=== PATIENT | male | born 1955 | race African-American/Black ===

== ENCOUNTER 2016-07-08 17:14 | Observation (INO) ==
[2016-07-08 17:41] LABS: MANUAL DIFF NEEDED? NO
[2016-07-08 17:53] LABS: BASO% 0.7 % (0.0-0.8); EOS# 0.26 X1000 (0.0-0.7); EOS% 6.3 % (0.0-10.0); HEMATOCRIT 40.6 % (42.0-52.0); HEMOGLOBIN 13.2 g/dL (14.0-18.0); LYMPH# 2.04 X1000 (1.2-3.4); LYMPH% 49.5 % (20.5-51.1); MCH 27.8 PG (27-31); MCHC 32.5 g/dL (33-37); MCV 85.5 FL (81-99); MONO# 0.42 X1000 (0.11-0.59); MONO% 10.2 % (1.7-9.3); MPV 10.1 FL (7.4-10.4); NEUT% 33.3 % (42.2-75.2); PLT 255 X1000 (130-400); RBC 4.75 XMIL (4.7-6.1)
[2016-07-08 18:12] LABS: ALBUMIN 4.4 g/dL (3.5-5.0); CALCIUM 8.9 mg/dL (8.8-10.2); POTASSIUM 4.5 mmol/L (3.5-5.1); TOTAL BILIRUBIN 0.23 mg/dL (0.20-1.00); TOTAL PROTEIN 7.8 g/dL (6.3-8.3)
[2016-07-08] MEDS ORDERED: TORADOL IV ONE (18:51)
[2016-07-08] MEDS ORDERED: NS 1,000 ML IV ONE ×2 (18:51→20:03)
[2016-07-08 19:04] LABS: URINE CULTURE NEEDED? NO; URINE MICRO REVIEW NEEDED? NO; URINE SOURCE CLEAN CATCH
[2016-07-08 19:11] LABS: BILIRUBIN URINE NEGATIVE (NEGATIVE); BLOOD URINE TRACE (NEGATIVE); COLOR YELLOW; GLUCOSE URINE NEGATIVE (NEGATIVE); LEUKOCYTES URINE NEGATIVE (NEGATIVE); NITRITE URINE NEGATIVE (NEGATIVE); PROTEIN URINE NEGATIVE (NEGATIVE); SP GRAVITY URINE 1.019; TURBIDITY URINE CLEAR (CLEAR); UR EPITHELIAL CELLS <10 /HPF (<10); URINE BACTERIA NEGATIVE /HPF; URINE RBC <10 /HPF (<10); URINE WBC <10 /HPF (<10); UROBILINOGEN URINE NORMAL (NORMAL)
[2016-07-08] MEDS ORDERED: SODIUM CHLORIDE 0.9% INJ ONE (20:07)
[2016-07-08] MEDS ORDERED: PHENERGAN IV ONE (20:07)
[2016-07-08] MEDS ORDERED: DILAUDID IV ONE (20:08)
--- NOTE | 2016-07-08 20:13 | PROVIDER DOCUMENTATION ---
This chart was entered by Sherine Sibley Scribe, acting as scribe for Byron Donato MD. HPI-Abdominal Pain/GI Problem - General Chief Complaint: Abdominal Pain Stated Complaint: sent by MD for eval Time Seen by Provider: 07/08/16 18:42 Source: patient Allergies/Adverse Reactions: Patient Allergies Allergy/AdvReac Type Severity Reaction Status Date / Time codeine Allergy Severe swells Verified 07/08/16 18:47 lips, makes lips itch Sulfa (Sulfonamide Allergy Severe SWELLING Verified 07/08/16 18:47 Antibiotics) Home Medications: Home Medication List Medication Instructions Recorded Confirmed Last Taken Type Paroxetine HCl 37.5 mg PO DAILY 07/02/12 07/08/16 04/07/16 History Dexlansoprazole [Dexilant] 60 mg PO DAILY 09/21/14 07/08/16 07/08/16 07:00 History Tamsulosin [Flomax] 0.4 mg PO DAILY 09/21/14 07/08/16 07/08/16 07:00 History Dronabinol [Marinol] 2.5 mg PO DAILY 04/07/16 07/08/16 07/08/16 07:00 History Fenofibrate 160 mg PO DAILY 04/07/16 07/08/16 07/08/16 07:00 History Sucralfate [Carafate] 1 gm PO 4XDAY #120 tablet 04/08/16 07/08/16 07/08/16 12: 00 Rx Amlodipine [Norvasc] 2.5 mg PO BID #60 tablet 05/10/16 07/08/16 07/08/16 07:00 Rx Clonazepam [Klonopin] 1 mg PO BID #60 tablet 05/10/16 07/08/16 07/08/16 07:00 Rx Hydrocodone/Acetaminophen [[place] 1 each PO BID #30 tablet 05/10/16 07/08/1602/13 07:00 Rx 10-325 Tablet] Mesalamine Supp [Canasa Supp] 1,000 mg HI HS #30 supp 05/10/16 07/08/16 Unknown Rx Paroxetine [Paxil] 30 mg PO QAM #0 tablet 05/10/16 07/08/16 07/08/16 07:00 Rx - History of Present Illness-ABD Nature of Presenting Problems: 61 Y/O M presents to ED with ABD pain. Pt states that he was sent here from Dr. Dawkins's office due to his persistent D/N with blood and mucus noted for the past one week. Pt c/o of chills, diaphoresis, and generalized abd pain. Pt has a hx of small intestine removal, removal of gallbladder and hemorrhoid removal. Hx of Crohns disease. Abdominal Pain Onset Location: reports: generalized abdomen Pain Radiation: reports: no radiation Quality of Pain: reports: aching Severity in ED: reports: moderate, severe Onset/Duration: reports: 1 week ago Timing: reports: still present Activities at Onset: reports: none Exposure to sick contacts?: No Associated Symptoms: reports: diarrhea, fever/chills, nausea. denies: constipation, heartburn, vomiting Rectal Bleeding: reports: bloody diarrhea Review of Systems - Adult - REVIEW OF SYSTEMS - ADULT Constitutional: reports: chills. denies: fever Eyes: reports: no symptoms reported Ears, Nose, Mouth & Throat: reports: no symptoms reported Cardiovascular: reports: no symptoms reported Respiratory: denies: cough, shortness of breath Gastrointestinal: reports: abdominal pain, diarrhea, nausea. denies: vomiting Genitourinary: reports: no symptoms reported Musculoskeletal: reports: no symptoms reported Integumentary: reports: no symptoms reported Neurological: reports: no symptoms reported Psychiatric: reports: no symptoms reported Endocrine: reports: no symptoms reported Hematologic/Lymphatic: reports: no symptoms reported Allergic/Immunologic: reports: no symptoms reported All Other Systems: Reviewed and Negative Past History - Adult - PAST MEDICAL HISTORY-ADULT Review of Records: reports: Old Records Reviewed, Nursing Assessment Review, Medications Reviewed, Social history reviewed & non-contributory. Major Childhood Illnesses: reports: denies history Cardiovascular: reports: HTN (no:used to take BP meds but has resolved.) Respiratory: reports: COPD Gastrointestinal: reports: Crohn's, GERD Obstetrical/Gynecological: reports: denies history Genitourinary: reports: denies history Musculoskeletal: reports: denies history Neurological: reports: Seizures/Epilepsy (no: 2 cervical disc surgeries, limited movement of neck ) Endocrine/Immune: reports: denies history Other Conditions: reports: denies history - PRIOR SURGERIES/PROCEDURES Surgical/Procedure History: reports: cholecystectomy, back/neck (2 back surgeries, hemrrhoid surgery) - IMMUNIZATION STATUS Childhood Immunizations: See Nurse Assessment Flu Vaccine: See Nurse Assessment - FAMILY HISTORY Family History: reviewed, not pertinent - SOCIAL HISTORY Smoking: other (light tobacco) Alcohol Use Frequency: never Living Situation: family Physical Exam-General - PHYSICAL EXAM-ADULT Initial Vital Signs Reviewed: Yes - CONSTITUTIONAL General Appearance: appears well, alert, no apparent distress - EYES Eyes: PERRL/EOMI, pink conjunctivae - HEAD, EARS, NOSE, MOUTH & THROAT HENMT: normocephalic/atraumatic, moist mucous membranes, normal ENT inspection, TMs normal, pharynx normal - NECK Neck: non-tender, full range of motion, supple, normal inspection - RESPIRATORY Respiratory: chest non-tender, lungs clear, normal breath sounds - CARDIOVASCULAR Cardiovascular: normal peripheral pulses, regular rate, rhythm - GASTROINTESTINAL (ABDOMEN) Abdominal Exam: normal bowel sounds, soft, tenderness - LYMPHATIC Lymphatic: no adenopathy - MUSCULOSKELETAL Back Exam: normal inspection, no CVA tenderness, no vertebral tenderness Extremity: normal range of motion, non-tender, normal gait, normal inspection - SKIN Integumentary: normal color, normal turgor, warm/dry - 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, no motor/sensory deficits - PSYCHIATRIC Psych/Mental Status: normal mood/affect, normal thought content, normal thought process, oriented x 3 Progress - PLAN OF CARE/RESULTS Progress/Plan/Lab Results: Vital Signs - 8 hr 07/08/16 17:18 Temperature 98.2 F Pulse Rate 68 Respiratory Rate 18 Blood Pressure 117/77 O2 Sat by Pulse Oximetry 98 Laboratory Results - last 24 hr 07/08/16 07/08/16 17:32 17:32 WBC 4.12 L RBC 4.75 Hgb 13.2 L Hct 40.6 L MCV 85.5 MCH 27.8 MCHC 32.5 L RDW Std Deviation 17.3 H Plt Count 255 MPV 10.1 Immature Gran % (Auto) 0.0 Neut % (Auto) 33.3 L Lymph % (Auto) 49.5 Power % (Auto) 10.2 H Eos % (Auto) 6.3 Baso % (Auto) 0.7 Immature Gran # (Auto) 0.00 Neut # (Auto) 1.37 L Lymph # (Auto) 2.04 Power # (Auto) 0.42 Eos # (Auto) 0.26 Baso # (Auto) 0.03 Sodium 140 Potassium 4.5 Chloride 106 Carbon Dioxide 20 L Anion Gap 14 BUN 19 Creatinine 1.7 H Estimated GFR/1.73 m2 50 BUN/Creatinine Ratio 11 Glucose 95 Calculated Osmolality 281 Calcium 8.9 Total Bilirubin 0.23 AST 25 ALT 20 Alkaline Phosphatase 51 Total Protein 7.8 Albumin 4.4 Globulin 3.4 Albumin/Globulin Ratio 1.3 Amylase 338 H Lipase 262 H Orders Category Date Time Status NPO Diet 07/08/16 17:22 Active AMYLASE [CHEM] Stat Lab 07/08/16 17:32 Completed CBC WITH ELECTRONIC DIFF [HEME] Stat Lab 07/08/16 17:32 Completed COMPREHENSIVE METABOLIC PANEL [CHEM] Stat Lab 07/08/16 17:32 Completed LIPASE [CHEM] Stat Lab 07/08/16 17:32 Completed URINALYSIS W/POSS RFLX CULT [URINALYSIS] Stat Lab 07/08/16 17:22 Uncollected Result Diagrams: 07/08/16 17:32 07/08/16 17:32 - REASSESSMENT Reassessment #1 Time Reassessed: 20:08 Status: unchanged (01/06 pain but patient appears compsed. Admits to previous pancreatitis spell. Informed of admission) Departure - Departure Time of Disposition Decision: 20:11 DIAGNOSIS: Pancreatitis, Renal insufficiency, mild Disposition: ADMITTED INPATIENT 09 Certified Medical Emergency: Emergent Condition: Stable Referrals and Follow-Ups: Gordon Oquendo MD [Primary Care Provider] - This chart was documented by the indicated scribe, (Sherine Sibley Scribe) and accurately reflects the services I performed and decisions made by , Byron Donato MD, as attested by the provider's signature.
--- NOTE | 2016-07-08 20:17 | Diag Imaging Result Document ---
PROCEDURE NAME: CT ABD/PELVIS W/ IV CONT ONLY - 07/08/2016 CT OF THE ABDOMEN WITH INTRAVENOUS CONTRAST: FINDINGS: There is some dependent atelectasis in both lung bases. There is no evidence of abdominal aortic aneurysm and the mesenteric arteries are patent. There are renal and hepatic cysts. There has been previous cholecystectomy. There is bilateral nephrolithiasis. No evidence of hydronephrosis is present. Compared to the previous study of 05/05/2016, although it was performed without contrast, the liver spleen adrenal glands, and kidneys are stable in appearance. The pancreas is unremarkable. There has been near-total colectomy. There is stool in the rectum. There is fluid throughout the small bowel and stomach. There is no evidence of significant adenopathy. CT OF THE PELVIS WITH INTRAVENOUS CONTRAST: FINDINGS: There is no evidence of free fluid. The urinary bladder is not particularly distended. Compared to the previous study of 05/05/2016, there is apparently more small bowel gas and fluid. Otherwise, there is no significant change. The regional skeleton is stable in appearance. IMPRESSION: 1. The possibility of mild enterocolitis cannot be excluded. 2. 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
--- NOTE | 2016-07-08 21:25 | HISTORY AND PHYSICAL ---
PRIMARY CARE PHYSICIAN: Dr. Gordon Oquendo. CHIEF COMPLAINT: Nausea, vomiting, diarrhea for 4 days. HISTORY OF PRESENTING ILLNESS: A 61-year-old male with a history of rheumatoid arthritis who presented to the emergency department with 4 days history of having nausea, vomiting and diarrhea. Patient states that he was having worsening abdominal cramps the past 2 days and symptoms seemed to be worsening, subsequent had come to emergency department. In the ER he was evaluated. He had routine laboratories including amylase, lipase drawn which did show that it was elevated and due to his presenting illness it was suspected that he had a mild pancreatitis and will require hospitalization further management. At time of my examination he had denied any headache, fever, chills, chest pain, shortness of breath, hemoptysis, melena, weight changes but complained of abdominal pain and nausea, vomiting, diarrhea. PAST MEDICAL HISTORY: Rheumatoid arthritis. PAST SURGICAL HISTORY: Bowel surgery, cholecystectomy, cervical fusion. ALLERGIES: Codeine and sulfa. CURRENT MEDICATIONS: As in the MAR. SOCIAL HISTORY: Admits to smoking cigars daily, denies any history of alcohol or illicit drug use. FAMILY HISTORY: Positive for coronary disease in father. REVIEW OF SYSTEMS: Twelve point review of systems is as in HPI. Other systems negative. PHYSICAL EXAMINATION: GENERAL: Cooperative, friendly male. He is resting comfortably now. VITAL SIGNS: Temperature 98.2 degrees, pulse 60, respiration 18, blood pressure 117/77, he is saturating 98%. HEENT: Atraumatic, normocephalic. Extraocular movements intact. PERRLA. NECK: Supple. CHEST: Clear to auscultation. CARDIOVASCULAR: Regular rate and rhythm. ABDOMEN: Soft. Diffuse tenderness. EXTREMITIES: No edema. NEURO: He is awake, alert, oriented x3. : No bladder distention. SKIN: Warm. LABORATORIES AND STUDIES: WBC 4.12, hemoglobin 13.2, hematocrit 40.6, platelets 255,000. Sodium 140, potassium 4.5, chloride 106, CO2 20, BUN is 19, creatinine 1.7, glucose is 95, amylase is 338, lipase 262. ASSESSMENT: A 61-year-old male with a history of rheumatoid arthritis presented to emergency department with 4 days history of having nausea, vomiting, diarrhea and abdominal pain. He did have elevated amylase and lipase on routine laboratory examination in the ER and it was suspected he had pancreatitis. Subsequently he will need hospitalization further management. 1. Suspected mild pancreatitis. 2. Possible enterocolitis. 3. Acute kidney injury. 4. Rheumatoid arthritis. PLAN: 1. Will admit patient to medical floor with telemetry. 2. Continue support treatment with IV fluids, antiemetics and pain control. 3. Will monitor his renal function. 4. Will put patient on DVT prophylaxis with SCDs. 5. Will continue to follow and reassess. cc: Clif Mclaughlin MD
[2016-07-08] MEDS: NORVASC PO SCH (21:57)
[2016-07-08] MEDS: KLONOPIN PO SCH (22:02)
[2016-07-09] MEDS: NS 1,000 ML IV SCH ×2 (04:21→14:51)
[2016-07-09] MEDS: DILAUDID IV PRN ×6 (04:45→23:05)
[2016-07-09] MEDS: ZOFRAN IV PRN ×4 (04:46→23:09)
[2016-07-09 06:36] LABS: MANUAL DIFF NEEDED? NO
[2016-07-09 06:51] LABS: BASO% 0.5 % (0.0-0.8); EOS% 4.6 % (0.0-10.0); HEMATOCRIT 38.5 % (42.0-52.0); HEMOGLOBIN 12.4 g/dL (14.0-18.0); LYMPH# 0.97 X1000 (1.2-3.4); LYMPH% 22.2 % (20.5-51.1); MCH 27.5 PG (27-31); MCHC 32.2 g/dL (33-37); MCV 85.4 FL (81-99); MONO# 0.32 X1000 (0.11-0.59); MONO% 7.3 % (1.7-9.3); MPV 10.1 FL (7.4-10.4); NEUT% 65.4 % (42.2-75.2); PLT 229 X1000 (130-400); RBC 4.51 XMIL (4.7-6.1)
[2016-07-09 07:00] LABS: CALCIUM 8.3 mg/dL (8.8-10.2); POTASSIUM 4.6 mmol/L (3.5-5.1)
[2016-07-09] MEDS: NORVASC PO SCH ×2 (08:08→21:01)
[2016-07-09] MEDS: KLONOPIN PO SCH ×2 (08:08→21:01)
[2016-07-09] MEDS: FLOMAX PO SCH (08:08)
[2016-07-09] MEDS ORDERED: SODIUM CHLORIDE 0.9% 10 ML ONE (12:51)
--- NOTE | 2016-07-09 15:43 | PROGRESS NOTE ---
DATE: 07/09/2016 SUBJECTIVE: The patient reported still having mild abdominal pain around the epigastric area, . Denies any nausea or vomiting. OBJECTIVE: Vital Signs: Temperature 98.1 degrees, heart rate 57, respiratory rate 19, blood pressure 147/77, O2 saturation 100% on room air. General Examination: This is a 61-year-old male, lying in bed, in no acute distress. HEENT: Head is normocephalic, atraumatic. Anicteric sclerae. Pale conjunctivae. Mucous membranes moist. Neck: Supple. No JVD noted. No carotid bruits. No lymphadenopathy. No thyromegaly. Cardiovascular: S1 and S2 heard. No murmurs, gallops, or rubs. Regular rate and rhythm. Respiratory: Clear bilaterally to auscultation. No work of breathing or using accessory muscles. Abdomen: Soft diffuse tenderness to palpation, mostly present in the epigastric area. Extremities: No clubbing, cyanosis, or edema. Peripheral pulses present in both legs. Neurological: Patient is alert and oriented x3. Able to move 4 extremities. Cranial nerves 2 through 12 grossly normal. LABORATORY DATA: White cell count 4.36, hemoglobin 12.4, hematocrit 38.5, platelets 229,000. BMP shows creatinine is 1.5. ASSESSMENT AND PLAN: 1. Suspected mild pancreatitis. This patient was admitted for abdominal pain and lipase was mildly elevated, but the CT scan of the abdomen did not show any pancreatitis. In any case, the patient is complaining of abdominal pain and with this positive lipase we are going to continue with IV fluids and IV pain medication as well. If tomorrow he is feeling much better we will definitely start a clear liquid diet. 2. Possible enterocolitis. We suspected a C. difficile infection and we ordered a C. difficile antigen and toxin which returned negative. We are going to continue with IV fluids. 3. Acute kidney injury. The renal function yesterday showed 1.7 creatinine and today is 1.5. We will continue with IV fluids. 4. History of rheumatoid arthritis, aware. cc: De High MD
[2016-07-10] MEDS: NS 1,000 ML IV SCH ×3 (00:43→21:23)
[2016-07-10] MEDS: ZOFRAN IV PRN ×5 (04:30→22:29)
[2016-07-10] MEDS: DILAUDID IV PRN ×6 (04:30→20:54)
[2016-07-10 06:46] LABS: MANUAL DIFF NEEDED? NO
[2016-07-10 06:55] LABS: BASO% 0.2 % (0.0-0.8); EOS# 0.18 X1000 (0.0-0.7); EOS% 4.1 % (0.0-10.0); HEMATOCRIT 37.1 % (42.0-52.0); HEMOGLOBIN 11.7 g/dL (14.0-18.0); LYMPH# 1.11 X1000 (1.2-3.4); LYMPH% 25.5 % (20.5-51.1); MCHC 31.5 g/dL (33-37); MCV 85.7 FL (81-99); MONO# 0.41 X1000 (0.11-0.59); MONO% 9.4 % (1.7-9.3); MPV 10.1 FL (7.4-10.4); NEUT% 60.8 % (42.2-75.2); PLT 212 X1000 (130-400); RBC 4.33 XMIL (4.7-6.1)
[2016-07-10 07:40] LABS: AGAP 14; BUN 12 mg/dL (8-22); CALCIUM 8.2 mg/dL (8.8-10.2); CHLORIDE 112 mmol/L (98-107); COSMO 286; POTASSIUM 3.9 mmol/L (3.5-5.1); SODIUM 144 mmol/L (136-145); TCO2 18 mmol/L (25-35)
[2016-07-10] MEDS: NORVASC PO SCH ×2 (09:40→20:53)
[2016-07-10] MEDS: FLOMAX PO SCH (09:41)
[2016-07-10] MEDS: KLONOPIN PO SCH ×2 (09:41→20:53)
--- NOTE | 2016-07-10 15:58 | PROGRESS NOTE ---
DATE: 07/10/2016 SUBJECTIVE: The patient reports still having diarrhea 4 times per day. He reports feeling not nauseated and he wants to try some food. OBJECTIVE: Vital Signs: Temperature 97.0 degrees, heart rate 67, respiratory rate 20, blood pressure 121/60. O2 saturation 99% on room air. On examination, this is a 61-year-old, - [place] male lying in bed in no acute distress. HEENT: Head is normocephalic and atraumatic. Anicteric sclerae and pale conjunctivae. Mucous membranes moist. Neck supple. No JVD. No carotid bruits. No lymphadenopathy. No thyromegaly. Cardiovascular: S1, S2 heard. No murmurs, gallops, or rubs. Regular rate and rhythm. Respiratory: Clear bilaterally to auscultation. No work of breathing. Not using accessory muscles. Abdomen soft, a little bit tender to palpation in the epigastric area, and there are no signs of peritoneal irritation. Bowel sounds present. No organomegaly. Extremities: No clubbing, cyanosis, or edema. Peripheral pulses present in both legs. Neurologic: The patient is alert and oriented x3. Able to move 4 extremities. Cranial nerves 2-12 grossly normal. LABORATORY DATA: Reviewed. ASSESSMENT AND PLAN: 1. Suspect mild pancreatitis. The patient's abdominal pain is getting better, so we are going to try a clear liquid diet. Also, the patient requests a more consistent diet, so we are going to start GI soft diet and will see how this patient does. 2. Possible enterocolitis. The patient is still having diarrhea although the Clostridium difficile antigen and toxin returned negative. The patient is going to receive 500 mg p.o. b.i.d. 3. Acute kidney injury. The creatinine continues to improve and today it is 1.5. Creatinine with GFR greater than 60. We will continue with IV fluids. 4. History of rheumatoid arthritis, aware. cc: De High MD
[2016-07-10] MEDS: CIPRO PO SCH ×2 (16:11→20:53)
--- NOTE | 2016-07-10 16:51 | CONSULTATION ---
DATE OF CONSULTATION: 07/10/2016 REFERRING PHYSICIAN: De High M.D. PRIMARY CARE PHYSICIANS: Gordon Oquendo M.D. INDICATIONS FOR CONSULTATION: 1. Pancreatitis. 2. Diarrhea. 3. Abdominal bloating with distention. HISTORY OF PRESENT ILLNESS: The patient is a 61-year-old, male with past medical history of Crohn disease, diverticulitis, recurrent pancreatitis, irritable bowel syndrome and rheumatoid arthritis. He presented to the clinic 2 days ago with abdominal bloating and distention and abdominal pain. He also complained of nausea with vomiting and abdominal distention. He had evidence of orthostatic hypotension consistent with volume depletion. He was referred to the emergency room for admission. We were consulted today because he was found to have acute pancreatitis on admission. In addition, he continues to have abdominal bloating and distention. We are asked to participate in his care. PAST MEDICAL HISTORY: 1. Crohn disease. 2. Rheumatoid arthritis. 3. Anal fissures. 4. Hypercholesterolemia. 5. Hypertension. 6. Irritable bowel syndrome. 7. Schatzki's ring. 8. Hiatal hernia. 9. Gastritis. 10. Duodenitis. 11. Cricopharyngeal achalasia. 12. Active bile reflux. 13. Hemorrhoids. 14. GERD. 15. Anxiety. 16. Hypertension. 17. COPD. 18. Benign prostatic hypertrophy. 19. Hypertrophy. 20. Acute diverticulitis. PAST SURGICAL HISTORY: 1. Colon resection in July of [address] Lenin Ramirez. 2. Cholecystectomy. 3. Hemorrhoidectomy. 4. Neck surgery. MEDICATION ALLERGIES: 1. Codeine. 2. Sulfa. HOME MEDICATIONS: 1. Flomax. 2. Carafate. 3. Paxil. 4. Canasa suppositories. 5. [place]. 6. Marinol. 7. Exelon. 8. Klonopin. 9. Norvasc. FAMILY HISTORY: Remarkable in that he has a sister with lymphoma. He has a sister with ulcerative colitis. His mother and another sister have Crohn disease. Both his mother and father have GERD. A sister had a stroke. SOCIAL HISTORY: Negative for alcohol, recreational drug use. He is currently a nonsmoker, but he occasionally used tobacco products in the past. REVIEW OF SYSTEMS: Remarkable for abdominal distention, gas, bloating, eructations, and diarrhea. PHYSICAL EXAMINATION: Vital Signs: On exam, his blood pressure is 121/66, pulse of 57, respiration 20, temperature of 97.0 degrees. HEENT: Unremarkable. His oropharyngeal mucosal membranes are dry. There is no evidence of jaundice. Pulmonary exam: His lungs are clear to auscultation with normal expiratory effort. Cardiovascular Exam: Reveals regular rate and rhythm with no gallops or rubs. Abdominal Exam: Reveals marked abdominal distention with diffuse abdominal tenderness, but no rebound or guarding. He has slightly hypoactive bowel sounds. Extremities: Bilaterally are negative for cyanosis, clubbing, or edema. LABS: His last labs were obtained on 07/09/2016 that reveal a hemoglobin of 11.7, hematocrit of 37.1, and a white count of 4.36. His platelet count was 212,000. Sodium 144, potassium 3.4, chloride 112, CO2 is 18, BUN 12, creatinine 1.3 with a glucose of 86 and a calcium of 8.2. IMPRESSION: 1. Acute on chronic pancreatitis. 2. Small intestinal bacterial overgrowth. 3. Diarrhea. 4. Crohn disease. 5. Gastroesophageal reflux disease. 6. Eructations with gas pains. RECOMMENDATION: 1. From a GI perspective, I would place him on his usual Carafate and Dexilant therapy. 2. Continue Cipro as you are doing. 3. Begin a course of Xifaxan 550 mg p.o. t.i.d. for 14 days as his clinical presentation has been most consistent with bacterial overgrowth. 4. Consider Levsin sublingual if his abdominal pain persists. 5. Please check serum chemistries, including a CMP on 07/11/2016. 6. Please also check a CRP with the morning labs. 7. Additional recommendations to follow based on his clinical course. 8. 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 From my perspective, it is reasonable to discharge him tomorrow if he is stable. cc: Kamala Dawkins M.D. De High M.D. Gordon Oquendo M.D. KATHRYN
[2016-07-10] MEDS: CARAFATE LIQUID PO SCH (22:43)
[2016-07-11] MEDS: DILAUDID IV PRN ×4 (00:41→10:21)
[2016-07-11] MEDS: CARAFATE LIQUID PO SCH ×2 (05:18→10:21)
[2016-07-11] MEDS: NS 1,000 ML IV SCH ×2 (05:18→07:13)
[2016-07-11] MEDS: ZOFRAN IV PRN (05:22)
[2016-07-11] MEDS ORDERED: PRILOSEC PO SCH (07:00)
[2016-07-11 07:13] LABS: AGAP 15; BUN 12 mg/dL (8-22); CALCIUM 8.2 mg/dL (8.8-10.2); CHLORIDE 111 mmol/L (98-107); COSMO 284; POTASSIUM 4.2 mmol/L (3.5-5.1); SODIUM 143 mmol/L (136-145); TCO2 17 mmol/L (25-35)
[2016-07-11 07:16] VITALS: BP 173/76
[2016-07-11 07:21] LABS: BASO% 0.2 % (0.0-0.8); EOS# 0.19 X1000 (0.0-0.7); EOS% 4.7 % (0.0-10.0); LYMPH# 1.12 X1000 (1.2-3.4); LYMPH% 27.5 % (20.5-51.1); MANUAL DIFF NEEDED? YES; MCH 27.6 PG (27-31); MCHC 32.4 g/dL (33-37); MCV 85.1 FL (81-99); MONO# 0.45 X1000 (0.11-0.59); MPV 11.2 FL (7.4-10.4); NEUT% 56.6 % (42.2-75.2); PLT 182 X1000 (130-400); RBC 4.35 XMIL (4.7-6.1)
[2016-07-11 07:36] LABS: BANDS 2 % (0-1); LYMPHS 26 % (21-51); MONO 10 % (1-9)
[2016-07-11] MEDS: KLONOPIN PO SCH ×2 (07:51→08:00)
[2016-07-11] MEDS: FLOMAX PO SCH ×2 (07:51→08:00)
[2016-07-11] MEDS: CIPRO PO SCH ×2 (07:51→08:00)
[2016-07-11] MEDS: NORVASC PO SCH ×2 (07:51→08:00)
--- NOTE | 2016-07-11 17:17 | DISCHARGE SUMMARY ---
ADMISSION DATE: 07/08/2016 DISCHARGE DATE: 07/11/2016 CONSULTATIONS: Kamala Dawkins MD with Gastroenterology. 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 DISCHARGE DIAGNOSES: 1. Suspected mild pancreatitis. Patient tolerating clear liquids. He was advanced and continued to tolerate. 2. Possible enterocolitis. Evaluated by GI and begin a course of Xifaxan. 3. Acute kidney injury, improved. HOSPITAL COURSE: Briefly, Mr. Miranda is a 61-year-old, -Indian male with a history of rheumatoid arthritis who presented to the emergency department with 4 days of nausea, vomiting, and diarrhea. He states that he was having worsening abdominal cramps for 2 days and his symptoms seem to be worsening. He had routine laboratories including amylase and lipase drawn that did show that it was elevated, and it was suspected he had mild pancreatitis and would require hospitalization for further management. Patient was admitted to the medical telemetry floor and continued supportive care with IV fluids, IV antiemetics and pain control, monitoring his renal function closely as well as a GI consultation for possible enterocolitis. Dr. Dawkins recommended to place the patient on Carafate and Dexilant therapy, Cipro as well as Xifaxan. Patient tolerated a clear liquid diet. He was advanced to a more consistent diet and he tolerated that well. 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 Dr. Reynolds has assessed the patient and feels he is appropriate for discharge. VITAL SIGNS AT TIME OF DISCHARGE: Temperature 97.9 degrees, heart rate 58, respirations 19, blood pressure 173/76, O2 is 100% on room air. DISCHARGE MEDICATIONS: 1. Norvasc 2.5 mg p.o. b.i.d. 2. Cipro 500 mg p.o. b.i.d. 3. Klonopin 1 mg p.o. b.i.d. 4. Dexilant 60 mg p.o. daily. 5. Marinol 2.5 mg p.o. daily. 6. Fenofibrate 160 mg p.o. daily. 7. [place] 10/325, 1 each p.o. b.i.d. 8. ASA suppository 1000 mg p.o. at bedtime. 9. Roxicodone 30 mg p.o. t.i.d. 10. Paxil 30 mg p.o. q.a.m. 11. Paroxetine 37.5 mg p.o. daily. 12. Xifaxan 550 mg p.o. b.i.d. 13. Carafate 1 g p.o. 4 times a day. 14. Flomax 0.4 mg p.o. daily. FOLLOWUP: Patient is being discharged home. He will follow up with his primary care physician, Dr. Gordon Oquendo, as well as Dr. Kamala Dawkins. Patient can return to the ED for any worsening of symptoms. DISCHARGE TIME: 33 minutes. Dictated by MIKE Menjivar for De High MD cc: De High MD MTDD
== END 2016-07-11 14:08 | disposition home or self-care (01) ==
LOC: ED 17:14 → 3N 23:26 → INTOOBSV 23:26 → SUATTDRO 23:26
PROVIDERS: ATTEND Internal Medicine

== ENCOUNTER 2016-07-24 13:37 | Inpatient (IN) ==
[2016-07-24 13:53] LABS: MANUAL DIFF NEEDED? NO
[2016-07-24 13:56] LABS: BASO% 0.7 % (0.0-0.8); EOS# 0.19 X1000 (0.0-0.7); EOS% 4.2 % (0.0-10.0); HEMATOCRIT 41.8 % (42.0-52.0); HEMOGLOBIN 14.1 g/dL (14.0-18.0); LYMPH# 1.71 X1000 (1.2-3.4); LYMPH% 37.9 % (20.5-51.1); MCH 27.8 PG (27-31); MCHC 33.7 g/dL (33-37); MCV 82.3 FL (81-99); MONO# 0.49 X1000 (0.11-0.59); MONO% 10.9 % (1.7-9.3); MPV 9.7 FL (7.4-10.4); NEUT% 46.3 % (42.2-75.2); PLT 264 X1000 (130-400); RBC 5.08 XMIL (4.7-6.1)
[2016-07-24 13:59] LABS: URINE CULTURE NEEDED? NO; URINE MICRO REVIEW NEEDED? NO; URINE SOURCE CLEAN CATCH
[2016-07-24 14:08] LABS: BILIRUBIN URINE NEGATIVE (NEGATIVE); BLOOD URINE NEGATIVE (NEGATIVE); COLOR YELLOW; GLUCOSE URINE NEGATIVE (NEGATIVE); LEUKOCYTES URINE NEGATIVE (NEGATIVE); NITRITE URINE NEGATIVE (NEGATIVE); PROTEIN URINE TRACE mg/dL (NEGATIVE); TURBIDITY URINE CLEAR (CLEAR); UROBILINOGEN URINE NORMAL (NORMAL)
[2016-07-24 14:09] LABS: UR EPITHELIAL CELLS <10 /HPF (<10); URINE BACTERIA NEGATIVE /HPF; URINE RBC <10 /HPF (<10); URINE WBC <10 /HPF (<10)
[2016-07-24 14:15] LABS: ALBUMIN 4.2 g/dL (3.5-5.0); CALCIUM 9.5 mg/dL (8.8-10.2); POTASSIUM 4.7 mmol/L (3.5-5.1); TOTAL BILIRUBIN 0.26 mg/dL (0.20-1.00)
[2016-07-24] MEDS ORDERED: ZOFRAN IV ONE (15:27)
[2016-07-24] MEDS ORDERED: DILAUDID IV ONE ×3 (15:27→23:49)
[2016-07-24] MEDS ORDERED: NS 1,000 ML IV ONE ×2 (15:27→22:00)
[2016-07-24] MEDS ORDERED: PEPCID IV ONE (15:28)
[2016-07-24] MEDS ORDERED: SODIUM CHLORIDE 0.9% INJ ONE ×2 (15:28→21:02)
--- NOTE | 2016-07-24 15:30 | PROVIDER DOCUMENTATION ---
HPI-Abdominal Pain/GI Problem - General Chief Complaint: Diarrhea Stated Complaint: DEHYDRATION Time Seen by Provider: 07/24/16 14:41 Source: patient, family Allergies/Adverse Reactions: Patient Allergies Allergy/AdvReac Type Severity Reaction Status Date / Time codeine Allergy Severe swells Verified 07/24/16 16:34 lips, makes lips itch Sulfa (Sulfonamide Allergy Severe SWELLING Verified 07/24/16 16:34 Antibiotics) Home Medications: Home Medication List Medication Instructions Recorded Confirmed Last Taken Type Paroxetine HCl 37.5 mg PO DAILY 07/02/12 07/24/16 04/07/16 History Dexlansoprazole [Dexilant] 60 mg PO DAILY 09/21/14 07/24/16 07/08/16 07:00 History Tamsulosin [Flomax] 0.4 mg PO DAILY 09/21/14 07/24/16 07/08/16 07:00 History Dronabinol [Marinol] 2.5 mg PO DAILY 04/07/16 07/24/16 07/08/16 07:00 History Fenofibrate 160 mg PO DAILY 04/07/16 07/24/16 07/08/16 07:00 History Clonazepam [Klonopin] 1 mg PO BID #60 tablet 05/10/16 07/24/16 07/08/16 07:00 Rx Hydrocodone/Acetaminophen [[place] 1 each PO BID #30 tablet 05/10/16 07/24/1602/13 07:00 Rx 10-325 Tablet] Mesalamine Supp [Canasa Supp] 1,000 mg GA HS #30 supp 05/10/16 07/24/16 Unknown Rx Oxycodone HCl [Roxicodone] 30 mg PO TID 07/11/16 07/24/16 Unknown History Paroxetine [Paxil] 40 mg PO QAM 07/24/16 07/24/16 Unknown History - History of Present Illness-ABD Nature of Presenting Problems: 61 year old AAM presents with c/o abdominal pain for years, worse over the last 3 days, diarrhea, which is chronic, worse over the last 3 days. Pt reports loss of appetite, subjective fever/chills and weight loss. Pt reports he was evaluated by Dr. Dawkins, his GI 7 days ago, started on Flagyl and Levaquin, but has not been improving. pt appears very uncomfortable, in mild/moderate distress. pt reports associated nausea. Pt reports his associated home meds are not controlling his pain/diarrhea. Abdominal Pain Onset Location: reports: generalized abdomen Quality of Pain: reports: aching, dull Severity in ED: reports: mild, moderate Onset/Duration: reports: 3 days ago Timing: reports: still present, constant, getting worse Modifying Factors: worse with: analgesics Associated Symptoms: reports: diarrhea, loss of appetite, malaise, nausea Last BM: this morning Dark Stools Present?: reports: none noticed. denies: maroon, black, tarry, bright red blood Rectal Bleeding: reports: none. denies: bleeding without stool, bright red blood on paper, blood mixed with stool, blood streaks on stool, bloody diarrhea # of Diarrhea Episodes: 5 Rectal Pain: reports: none Emesis Description: reports: none Bruising or Bleeding Gums?: No Similar Symptoms Previously?: No Recently seen or treated by another doctor?: No Review of Systems - Adult - REVIEW OF SYSTEMS - ADULT Constitutional: reports: see HPI, chills, fever. denies: fatique Eyes: reports: no symptoms reported. denies: discharge, blurred vision, double vision Ears, Nose, Mouth & Throat: reports: no symptoms reported. denies: ear discharge, ear pain, nose pain, loose teeth, throat pain, throat swelling Cardiovascular: reports: no symptoms reported. denies: chest pain, palpitations , syncope Respiratory: reports: no symptoms reported. denies: chronic cough, cough, shortness of breath, wheezing Gastrointestinal: reports: see HPI, abdominal pain, diarrhea, nausea, poor appetite, vomiting. denies: hematemesis, constipation, difficulty swallowing, frequent heartburn, rectal bleeding Genitourinary: reports: no symptoms reported. denies: dysuria, hematuria, urgency Musculoskeletal: reports: no symptoms reported. denies: bone pain, joint pain, joint swelling, neck pain Integumentary: reports: no symptoms reported. denies: hives, itching, skin sores/ulcer Neurological: reports: no symptoms reported. denies: ataxia, dizziness/vertigo , headache/migraines, loss of balance, numbness, paresthesia, seizure, slurred speech, syncope, tremors Psychiatric: reports: no symptoms reported Endocrine: reports: no symptoms reported Hematologic/Lymphatic: reports: no symptoms reported Allergic/Immunologic: reports: no symptoms reported. denies: frequent infections All Other Systems: Reviewed and Negative Past History - Adult - PAST MEDICAL HISTORY-ADULT Review of Records: reports: Old Records Reviewed, Nursing Assessment Review, Medications Reviewed, Social history reviewed & non-contributory. Major Childhood Illnesses: reports: denies history Cardiovascular: reports: HTN (no:used to take BP meds but has resolved.), hyperlipidemia Respiratory: reports: COPD Gastrointestinal: reports: Crohn's, GERD, IBS, pancreatitis, other (IBS) Obstetrical/Gynecological: reports: denies history Genitourinary: reports: denies history Musculoskeletal: reports: denies history Neurological: reports: Seizures/Epilepsy (no: 2 cervical disc surgeries, limited movement of neck ) Psychiatric: reports: denies history Endocrine/Immune: reports: denies history Other Conditions: reports: denies history - PRIOR SURGERIES/PROCEDURES Surgical/Procedure History: reports: cholecystectomy, back/neck (2 back surgeries, hemrrhoid surgery) - IMMUNIZATION STATUS Childhood Immunizations: See Nurse Assessment Flu Vaccine: See Nurse Assessment - FAMILY HISTORY Family History: reviewed, not pertinent - SOCIAL HISTORY Smoking: cigarettes Provider spent 3-5 mins advising pt. on dangers of tobacco.: Discussed manners to quit use, and f/u contacts for add'l counseling. Substance Use: none/never Alcohol Use Frequency: never Physical Exam-General - PHYSICAL EXAM-ADULT Initial Vital Signs Reviewed: Yes - CONSTITUTIONAL General Appearance: appears well, alert, mild distress, thin. negative: no apparent distress, moderate distress, severe distress - EYES Eyes: pink conjunctivae. negative: conjuctival exudate, pale conjunctivae, sclera injected, scleral icterus, subconjunctival hemorrhage - HEAD, EARS, NOSE, MOUTH & THROAT HENMT: normocephalic/atraumatic, moist mucous membranes, normal ENT inspection - NECK Neck: non-tender, full range of motion, supple, normal inspection. negative: C- spine tenderness, limited range of motion, tender lateral, tender midline - RESPIRATORY Respiratory: chest non-tender, lungs clear, normal breath sounds, no pleuratic chest pain, no respiratory distress, no accessory muscle use. negative: respiratory distress, decreased breath sounds, accessory muscle use, crackles, rales, rhonchi, stridor, wheezing - CARDIOVASCULAR Cardiovascular: normal peripheral pulses, regular rate, rhythm, no edema, no gallop, no JVD, no murmur. negative: bradycardia, tachycardia - GASTROINTESTINAL (ABDOMEN) Abdominal Exam: normal bowel sounds, soft, no organomegaly, no pulsatile mass, tenderness (diffuse, nonfocal). negative: non tender, distended, guarding, rigid, rebound - LYMPHATIC Lymphatic: no adenopathy - MUSCULOSKELETAL Back Exam: normal inspection, no CVA tenderness, no vertebral tenderness. negative: CVA tenderness, decreased range of motion, swelling, vertebral tenderness Extremity: normal range of motion, non-tender, normal gait, normal inspection, no pedal edema, no calf tenderness, normal capillary refill, pelvis stable. negative: deformity, erythema, inflammation, joint effusion Peripheral Pulses: radial (R): 3+, radial (L): 3+, dorsalis-pedis (R): 3+, dorsalis-pedis (L): 3+ - SKIN Integumentary: normal color, normal turgor, warm/dry. negative: pallor, petechiae, purpura, rash, swelling - NEUROLOGIC Neurologic: grossly normal, no motor/sensory deficits - PSYCHIATRIC Psych/Mental Status: normal mood/affect, normal thought content, normal thought process, oriented x 3 Progress - PLAN OF CARE/RESULTS Progress/Plan/Lab Results: Vital Signs - 8 hr 07/24/16 13:41 Temperature 97.7 F Pulse Rate 85 Respiratory Rate 18 Blood Pressure 122/85 O2 Sat by Pulse Oximetry 100 Laboratory Results - last 24 hr 07/24/16 07/24/16 07/24/16 13:48 13:48 13:52 WBC 4.51 L RBC 5.08 Hgb 14.1 Hct 41.8 L MCV 82.3 MCH 27.8 MCHC 33.7 RDW Std Deviation 16.7 H Plt Count 264 MPV 9.7 Immature Gran % (Auto) 0.0 Neut % (Auto) 46.3 Lymph % (Auto) 37.9 Giles % (Auto) 10.9 H Eos % (Auto) 4.2 Baso % (Auto) 0.7 Immature Gran # (Auto) 0.00 Neut # (Auto) 2.09 Lymph # (Auto) 1.71 Giles # (Auto) 0.49 Eos # (Auto) 0.19 Baso # (Auto) 0.03 Sodium 139 Potassium 4.7 Chloride 109 H Carbon Dioxide 14 L Anion Gap 16 BUN 30 H Creatinine 1.8 H Estimated GFR/1.73 m2 46 BUN/Creatinine Ratio 17 Glucose 109 H Calculated Osmolality 284 Calcium 9.5 Total Bilirubin 0.26 AST 16 ALT 13 Alkaline Phosphatase 56 Total Protein 8.0 Albumin 4.2 Globulin 3.8 Albumin/Globulin Ratio 1.1 Amylase 335 H Lipase 321 H Urine Source CLEAN CATCH Urine Color YELLOW Urine Turbidity CLEAR Urine pH 6.0 Ur Specific [place] 1.020 Urine Protein TRACE A Ur Glucose (Stick) NEGATIVE Ur Ketones (Stick) TRACE A Urine Blood NEGATIVE Urine Nitrite NEGATIVE Urine Bilirubin NEGATIVE Urobilinogen Dipstick NORMAL Urine Leukocytes NEGATIVE Urine WBC (Auto) <10 Urine RBC (Auto) <10 U Epithel Cells (Auto) <10 Urine Bacteria (Auto) NEGATIVE Orders Category Date Time Status Orthostatic Vital Signs NOW Care 07/24/16 15:27 Ordered NPO Diet 07/24/16 13:48 Active FLAT/UPRIGHT ABD/1 VIEW CHEST [RAD] Stat Exams 07/24/16 15:28 Ordered ACETONE SERUM [CHEM] Stat Lab 07/24/16 15:26 Ordered AMYLASE [CHEM] Stat Lab 07/24/16 13:48 Completed BLOOD CULTURE [BLDCUL] Stat Lab 07/24/16 15:26 Uncollected CBC WITH ELECTRONIC DIFF [HEME] Stat Lab 07/24/16 13:48 Completed COMPREHENSIVE METABOLIC PANEL [CHEM] Stat Lab 07/24/16 13:48 Completed CRP HIGH SENSITIVITY Stat Lab 07/24/16 15:26 Ordered LIPASE [CHEM] Stat Lab 07/24/16 13:48 Completed SED RATE [HEME] Stat Lab 07/24/16 15:26 Ordered UA NIMS W/REFLEX CULT [URINALYSIS] Stat Lab 07/24/16 15:28 Uncollected URINALYSIS W/POSS RFLX CULT-1 [URINALYSIS] Stat Lab 07/24/16 13:52 Completed Famotidine [Pepcid] Med 07/24/16 15:28 Once 20 mg IV NOW ONE Hydromorphone [Dilaudid] Med 07/24/16 15:27 Once 1 mg IV NOW ONE Ns 1000 ml IV Bolus X1 Med 07/24/16 15:27 Ordered 0.9% Sodium Chloride Inj [Ns] 1,000 ml IV 999 mls/hr Ondansetron [Zofran] Med 07/24/16 15:27 Once 4 mg IV NOW ONE Sodium Chloride 0.9% Med 07/24/16 15:28 Once 5 - 10 ml INJ NOW ONE Vital Signs - 24 hr 07/24/16 13:41 07/24/16 19:40 07/24/16 19:41 Temperature 97.7 F Pulse Rate 85 51 L Pulse Rate [Sitting] 62 Pulse Rate [Standing] 71 Pulse Rate [Supine] 51 L Respiratory Rate 18 18 Blood Pressure 122/85 136/72 Blood Pressure [Sitting] 145/77 Blood Pressure [Standing] 119/78 Blood Pressure [Supine] 136/72 O2 Sat by Pulse Oximetry 100 98 Reviewed radiology, H&P, labs with Dr. Dorantes, agrees with plan of care and treatment. Result Diagrams: 07/24/16 13:48 07/24/16 13:48 - XRAY 1 XRAY Study: Abdomen Impression: Normal - CONSULTS/PCP/HOSPITALIST Notification #1 *Consult/PCP/Hospitalist*: Dr. Mclaughlin Time Discussed: 19:40 Reason/Comments: pancreatitis secondary to hyperlipidemia; chronic diarrhea Consult Disposition: Will see in ED, Admit Departure - Departure Time of Disposition Decision: 19:25 DIAGNOSIS: Pancreatitis Qualifiers: Chronicity: chronic Pancreatitis type: unspecified pancreatitis type Qualified Code(s): K86.1 - Other chronic pancreatitis Diarrhea Qualifiers: Diarrhea type: unspecified type Qualified Code(s): R19.7 - Diarrhea, unspecified Abdominal pain Qualifiers: Abdominal location: generalized Qualified Code(s): R10.84 - Generalized abdominal pain Disposition: ADMITTED INPATIENT 09 Certified Medical Emergency: Emergent Condition: Stable Referrals and Follow-Ups: Gordon Oquendo MD [Primary Care Provider] - - Critical Care Note This patient required my direct personal management.: No Attestation - Physician/ IMAN Attestation Patient care was provided by Advanced Practice Provider:: Yes Advanced Practice Provider:: Christopher Gaspar Advanced Practice Provider documentation review:: The Mid-level provider documentation, treatment plan and medical decision making was reviewed by the physician who agrees with all treatment and medical decision making by the [facility].
--- NOTE | 2016-07-24 16:11 | Diag Imaging Result Document ---
PROCEDURE NAME: FLAT/UPRIGHT ABD/1 VIEW CHEST - 07/24/2016 FRONTAL CHEST X-RAY AND 2 VIEWS OF THE ABDOMEN: COMPARISON: 05/05/2016. FINDINGS: Stable granuloma in the right mid lung. No focal infiltrates, pneumothorax or pleural effusion. Heart size is normal. Stable unfolding of the aorta. There are cholecystectomy clips. No bowel obstruction or free air. IMPRESSION: No acute disease.
[2016-07-24] MEDS ORDERED: CANASA SUPP PR ONE (21:02)
--- NOTE | 2016-07-24 21:44 | CONSULTATION ---
DATE OF CONSULTATION: 07/24/2016 REFERRING PHYSICIAN: Familia Dorantes M.D. PRIMARY CARE PHYSICIAN: Gordon Oquendo M.D. INDICATION FOR CONSULTATION: 1. Nausea with vomiting. 2. Diarrhea. 3. Abdominal pain. 4. Weight loss (from 180 pounds in April 2016 to 159 pounds today). 5. Recurrent pancreatitis. HISTORY OF PRESENT ILLNESS: The patient is a 61-year-old, male who was recently admitted from 07/08/2016 to 07/11/2016 with recurrent acute pancreatitis. He had improved over the 3 day admission, but was not back to normal. 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 Since discharge, he has had the above symptoms that have become progressively worse over the last 2 weeks. He presented to Dr. Gordon Oquendo office this afternoon and was barely able to walk or stand without assistance. He was sent to the emergency room for evaluation and treatment. He has been subsequently found to have acute on chronic pancreatitis, acute on chronic kidney injury and severe volume depletion. His recent weight loss has been documented. We are asked to participate in his care. Please see his recent hospital dictation from 07/10/2016 for full details. PAST MEDICAL HISTORY (limited to GI concerns. See 07/10/2016 dictation for details): 1. Crohn's disease. 2. Anal fissures. 3. Irritable bowel syndrome. 4. Gastroduodenitis. 5. Schatzki's ring. 6. Cricopharyngeal achalasia. 7. History of diverticulitis in the past. PAST SURGICAL HISTORY: Remarkable for colon resection July of [address] Ramirez. His other surgeries are outlined in his consultation from 07/10/2016. MEDICATION ALLERGIES: 1. Codeine. 2. Sulfa. HOME MEDICATIONS: 1. Flomax. 2. Paxil. 3. Roxicodone. 4. Canasa suppositories. 5. Rankin 10. 6. Fenofibrate. 7. Marinol. 8. Dexilant. 9. Klonopin. SOCIAL HISTORY: Negative for alcohol, tobacco or recreational drug use. 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 FAMILY HISTORY: Noncontributory. PHYSICAL EXAMINATION: Vital signs: On exam supine, his blood pressure is 136/ 72, pulse of 51. Sitting his blood pressure is 145/77, pulse of 62. Standing, his blood pressure is 119/78, pulse is 71. He is symptomatic with standing. Respirations are 18. Temperature is 97.7 degrees. General: He is a frail-appearing male who is somewhat gaunt compared to his baseline. HEENT: Negative for jaundice. His pupils are reactive. His sclerae is anicteric, but his oropharyngeal mucosal membranes are dry. Lungs: Are clear to auscultation with normal expiratory effort. Cardiovascular: Reveals regular rate and rhythm with no gallops or rubs. Abdominal: Reveals normoactive bowel sounds. The abdomen is soft, but there is significant epigastric and right lower quadrant tenderness. There is no rebound or guarding. Extremities: Bilaterally are negative for cyanosis, clubbing, or edema. OBJECTIVE DATA: Remarkable for hemoglobin of 14.1, hematocrit of 41.8. He has 264,000 platelets and his white blood cell count is 4.51. His sedimentation rate is 15. Sodium is 139, potassium 4.7, chloride 109, CO2 of 14, BUN 30, creatinine 1.8, with a glucose 109. Calcium is 9.5, total bilirubin 0.26, AST 16, ALT 13, alkaline phosphatase 56, total protein 8, and albumin 4.2. His CRP is 0.33. His amylase is 335 with a lipase of 321 and a plasma lactate of 1.2. His acetone level was negative. IMPRESSION: 1. Acute on chronic pancreatitis. 2. Diarrhea. 3. Volume depletion. 4. Acute kidney injury. 5. Known history of Crohn's disease. RECOMMENDATION: 1. I agree with aggressive IV hydration. 2. I would check stool studies for C. difficile colitis as he was recently hospitalized. 3. The patient has had recurrent pancreatitis on multiple occasions. The cause is still as yet unknown. However, he appears to have pancreatic insufficiency. We had previously recommended pancreatic enzymes, but they were not initiated. Therefore, I will begin Creon 6000 international units 3-4 times a day. We will adjust based on his clinical response. 4. He had mild proctitis on his previous flexible sigmoidoscopy. He is status post a total colectomy with ileoanal anastomosis. Therefore, I would resume his Canasa suppository 1 g at bedtime. 5. He has a history of erosive gastritis, gastroesophageal reflux disease and reflux disease. I would begin Protonix 40 mg IV q.12 hours. 6. He typically responds to conservative management. Therefore, I would begin with conservative management and adjust his therapy based on his clinical response. cc: MD Gordon Vásquez MD Kevin O'Meara MTDD
[2016-07-24] MEDS: PROTONIX IV SCH (22:10)
[2016-07-24] MEDS ORDERED: NS 1,000 ML ONE (22:19)
[2016-07-24] MEDS ORDERED: LR 1,000 ML IV ONE (23:00)
[2016-07-25] MEDS: DILAUDID IV PRN ×5 (03:47→20:53)
--- NOTE | 2016-07-25 05:43 | HISTORY AND PHYSICAL ---
PRIMARY CARE PHYSICIAN: Gordon Oquendo MD CHIEF COMPLAINT: Abdominal pain and diarrhea x1 week. HISTORY OF PRESENTING ILLNESS: A 61-year-old male with a history of Crohn's, depression, gastroesophageal reflux disease, and hyperlipidemia, had presented to emergency department with complaint of having abdominal pain and diarrhea for the past week. He describes abdominal pain as sharp and more in his epigastric region and stated that he was nauseated and vomiting at times. He also states that he has been having this diarrhea that has been ongoing for several weeks; however, over the past week it seemed to be worsening. He was previously admitted for pancreatitis several weeks back and he was treated and sent home. At the time of my examination, he had denied any headache, vision changes, fevers, chills, chest pain, shortness of breath hemoptysis, or any weight changes, but complained of abdominal pain and diarrhea. PAST MEDICAL HISTORY: Includes hyperlipidemia, gastroesophageal reflux disease, Crohn's, depression, and benign prostatic hypertrophy. PAST SURGICAL HISTORY: Cholecystectomy, colectomy, and cervical fusion. ALLERGIES: To sulfa and codeine. CURRENT MEDICATIONS: As listed in the MAR. SOCIAL HISTORY: Thirty pack years history of smoking. He states he occasionally does this. Denies any history of alcohol or illicit drug use. FAMILY HISTORY: Positive for coronary disease in father. REVIEW OF SYSTEMS: Twelve point review of systems as in history of present illness. Other systems negative. PHYSICAL EXAMINATION: GENERAL: Cooperative, friendly male. He is resting more comfortably now. VITAL SIGNS: Temperature 97.7 degrees, pulse 85, respiration 18, blood pressure 122/85. He is saturating 100%. HEENT: Atraumatic, normocephalic. Extraocular movements intact. Pupils equal, round, and reactive to light. NECK: Supple. CHEST: Clear to auscultation. CARDIOVASCULAR: Regular rate and rhythm. ABDOMEN: Soft. Diffuse tenderness. EXTREMITIES: No edema. NEUROLOGICAL: He is awake, alert, oriented x3. GENITOURINARY: No bladder distention. SKIN: Skin is warm. LABORATORIES AND STUDIES: Sodium 139, potassium 4.7, chloride 109, CO2 is 14. BUN is 30, creatinine is 1.8. Glucose is 109. Lipase is 321. WBC 4.51, hemoglobin 14.1, hematocrit 41.8, platelets is 264,000. ASSESSMENT: A 61-year-old male with a history of Crohn's, benign prostatic hypertrophy, gastroesophageal reflux disease, and hyperlipidemia, who presented to the emergency department with complaint of recurrent abdominal pain. He was previously admitted for pancreatitis. He was noted on this visit to have also elevated lipase consistent with pancreatitis. He will need hospitalization for further management. ASSESSMENT: 1. Acute on chronic recurrent pancreatitis. 2. Acute diarrhea. 3. History of Crohn's. 4. Acute kidney injury secondary to volume depletion. PLAN: 1. We will admit patient to medical floor with telemetry. 2. We will keep him NPO. 3. Continue IV fluids, antiemetics, and give medical pain control. 4. We will consult Gastroenterology, Dr. Dawkins. 5. Will do stool studies. 6. We will monitor renal function. 7. We will put patient on deep venous thrombosis prophylaxis with SCD's. 8. We will continue to follow and reassess. cc: Clif Mclaughlin MD
[2016-07-25] MEDS ORDERED: SODIUM CHLORIDE 0.9% 10 ML ONE ×2 (07:34→15:49)
[2016-07-25] MEDS: PROTONIX IV SCH ×3 (08:13→20:51)
[2016-07-25] MEDS: NS 1,000 ML IV SCH ×3 (08:17→19:52)
[2016-07-25] MEDS: KLONOPIN PO SCH ×2 (08:19→20:52)
[2016-07-25] MEDS: ZOFRAN IV PRN ×3 (08:44→20:52)
[2016-07-25 08:45] LABS: MANUAL DIFF NEEDED? NO
[2016-07-25 08:51] LABS: BASO% 1.1 % (0.0-0.8); EOS# 0.28 X1000 (0.0-0.7); EOS% 7.5 % (0.0-10.0); HEMATOCRIT 35.9 % (42.0-52.0); HEMOGLOBIN 11.8 g/dL (14.0-18.0); LYMPH% 45.6 % (20.5-51.1); MCH 27.6 PG (27-31); MCHC 32.9 g/dL (33-37); MCV 84.1 FL (81-99); MONO# 0.48 X1000 (0.11-0.59); MONO% 12.9 % (1.7-9.3); MPV 9.9 FL (7.4-10.4); NEUT% 32.9 % (42.2-75.2); PLT 231 X1000 (130-400); RBC 4.27 XMIL (4.7-6.1)
[2016-07-25] MEDS ORDERED: CREON PO SCH (09:00)
[2016-07-25 09:19] LABS: AGAP 13; BUN 20 mg/dL (8-22); CALCIUM 8.5 mg/dL (8.8-10.2); CHLORIDE 114 mmol/L (98-107); COSMO 289; POTASSIUM 4.1 mmol/L (3.5-5.1); SODIUM 144 mmol/L (136-145); TCO2 17 mmol/L (25-35)
--- NOTE | 2016-07-25 13:35 | PROGRESS NOTE ---
DATE: 07/25/2016 SUBJECTIVE: This patient is still complaining of abdominal pain, mostly at the level of the periumbilical area. This patient has been having diarrhea, watery, multiple times per day, but since the admission, he has not had any bowel movement. He is complaining also of mild nausea. He denies vomiting, chest pain or shortness of breath. OBJECTIVE: Vital signs: Temperature is 97.9, pulse 56, respiratory rate 20, blood pressure 132/77, oxygen saturation is 100% on room air. HEENT: Head is normocephalic and atraumatic. PERRLA. Neck: Supple. No JVD. No masses. Central trachea. Chest: Clear to auscultation. No wheezing or rales. Abdomen: Soft. Tender to palpation at the level of the periumbilical area and suprapubic area. No rebound. Positive bowel sounds. Extremities: No edema, no clubbing, no cyanosis. Neurologic: The patient is alert and oriented x3. No focal deficits. DIAGNOSTIC DATA: WBC is 3.7, hemoglobin 11.8, hematocrit 35.9, platelets 231. Sodium is 144, potassium 4.1, chloride 114, bicarbonate 17, BUN is 20, creatinine 1.4, glucose 87, calcium 8.5. ASSESSMENT AND PLAN: 1. Recurrent pancreatitis. I will continue with IV fluids, pain medication and nothing per mouth. Gastroenterology Department is onboard and will continue to monitor this patient. 2. Acute diarrhea. He has not had any bowel movement since the admission. We will continue to monitor. 3. History of Crohn's disease. Cat Sitter is onboard. We will follow their recommendations. 4. Chronic kidney disease. It looks like this is his baseline. We will continue to monitor. 5. Normocytic anemia. Continue to monitor. Stable. cc: Latrell Edmonds MD
[2016-07-25] MEDS ORDERED: CARAFATE LIQUID PO SCH (22:00)
[2016-07-26] MEDS: CARAFATE LIQUID PO SCH ×5 (00:30→22:54)
[2016-07-26] MEDS: DILAUDID IV PRN ×6 (00:53→21:57)
[2016-07-26] MEDS: NS 1,000 ML IV SCH ×4 (05:27→23:13)
[2016-07-26 07:01] LABS: MANUAL DIFF NEEDED? NO
[2016-07-26 07:13] LABS: BASO% 0.3 % (0.0-0.8); EOS# 0.26 X1000 (0.0-0.7); EOS% 6.9 % (0.0-10.0); HEMATOCRIT 34.3 % (42.0-52.0); HEMOGLOBIN 11.3 g/dL (14.0-18.0); LYMPH% 34.5 % (20.5-51.1); MCH 27.6 PG (27-31); MCHC 32.9 g/dL (33-37); MCV 83.7 FL (81-99); MONO# 0.49 X1000 (0.11-0.59); MPV 9.7 FL (7.4-10.4); NEUT% 45.3 % (42.2-75.2); PLT 225 X1000 (130-400)
[2016-07-26 07:30] LABS: AGAP 15; ALBUMIN 3.2 g/dL (3.5-5.0); ALKALINE PHOSPHATASE 44 U/L (32-122); BUN 16 mg/dL (8-22); CALCIUM 8.3 mg/dL (8.8-10.2); CHLORIDE 110 mmol/L (98-107); COSMO 285; GOT 14 U/L (10-34); GPT 11 U/L (10-44); POTASSIUM 3.5 mmol/L (3.5-5.1); SODIUM 143 mmol/L (136-145); TCO2 18 mmol/L (25-35); TOTAL BILIRUBIN 0.25 mg/dL (0.20-1.00); TOTAL PROTEIN 6.3 g/dL (6.3-8.3)
[2016-07-26] MEDS ORDERED: CREON PO SCH (08:00)
[2016-07-26] MEDS: OXY IR PO SCH ×3 (09:00→22:52)
[2016-07-26] MEDS: SODIUM CHLORIDE 0.9% 10 ML ONE (09:16)
[2016-07-26] MEDS: PROTONIX IV SCH ×2 (09:16→22:54)
[2016-07-26] MEDS: CREON PO SCH ×3 (09:16→16:01)
[2016-07-26] MEDS: KLONOPIN PO SCH ×2 (09:23→22:52)
--- NOTE | 2016-07-26 10:53 | PROGRESS NOTE ---
DATE: 07/26/2016 PRIMARY CARE PROVIDER: Dr. Gordon Oquendo. SUBJECTIVE: The patient notes that he is still having some abdominal pain. Still hurts with any attempt at eating or drinking. Still feels nauseated at times. Denies any diarrhea, constipation. Denies any melena, hematochezia. Patient states he does not drink alcohol at all. OBJECTIVE: Vital Signs: Temp 98, pulse 76 respiratory rate 18, BP 138/60, sat 100% on room air. General: Patient is awake, alert. He is currently in no respiratory distress. He is very pleasant to talk with. He is sitting in bed watching television. Neck: Supple. CV: Regular rate. Chest: Relatively clear. Abdomen: Soft. Positive tenderness in the epigastric region, as well as bilateral upper quadrants. No guarding, no rebound. No masses. No hepatosplenomegaly appreciable. Extremities: Moves all extremities. No edema. Neurologic: No changes. No focal deficit. Patient is awake, alert. LABS: CBC essentially unchanged. CMP with improved creatinine of 1.3. ASSESSMENT: 1. Acute pancreatitis, recurrent, uncertain etiology. Gastroenterology is on board. We will continue pain control, as well as advancing diet. Currently is not tolerating clear liquids. 2. Acute diarrhea. Patient again has gastroenterology on board. He has a history of Crohn. He is scheduled for colonoscopy on Thursday. 3. Acute renal failure. Creatinine continues to improve, likely secondary to his volume depletion. Creatinine is down to 1.3. BUN is down to 16. 4. Metabolic acidosis. Continues to improve secondary to his recurrent pancreatitis. PLAN: Hopefully, we will continue to advance diet as tolerated. We will restart patient's home pain medication. We will continue to hold the rest of his medications, recheck his labs in the a.m., to continue to follow his creatinine. cc: Niall St MD
[2016-07-26] MEDS: ZOFRAN IV PRN ×3 (14:07→23:12)
[2016-07-26] MEDS ORDERED: SODIUM CHLORIDE 0.9% 10 ML ONE (14:19)
[2016-07-27] MEDS: NS 1,000 ML IV SCH ×3 (03:28→15:39)
[2016-07-27] MEDS: CARAFATE LIQUID PO SCH ×4 (04:42→21:09)
[2016-07-27] MEDS: DILAUDID IV PRN ×5 (04:43→21:10)
[2016-07-27] MEDS: ZOFRAN IV PRN ×2 (04:43→13:07)
[2016-07-27 06:50] LABS: HEMATOCRIT 32.1 % (42.0-52.0); HEMOGLOBIN 10.5 g/dL (14.0-18.0); MCH 27.6 PG (27-31); MCHC 32.7 g/dL (33-37); MCV 84.3 FL (81-99); MPV 9.6 FL (7.4-10.4); RBC 3.81 XMIL (4.7-6.1)
[2016-07-27 07:06] LABS: ALBUMIN 3.1 g/dL (3.5-5.0); CALCIUM 8.1 mg/dL (8.8-10.2); MAGNESIUM 1.6 mg/dL (1.5-2.7); POTASSIUM 3.4 mmol/L (3.5-5.1); TOTAL BILIRUBIN 0.21 mg/dL (0.20-1.00); TOTAL PROTEIN 5.7 g/dL (6.3-8.3)
[2016-07-27] MEDS: CREON PO SCH ×3 (08:43→16:56)
[2016-07-27] MEDS ORDERED: SODIUM CHLORIDE 0.9% 10 ML ONE ×2 (09:15→13:40)
[2016-07-27] MEDS: PROTONIX IV SCH ×2 (09:42→21:09)
[2016-07-27] MEDS: OXY IR PO SCH ×3 (09:48→21:09)
[2016-07-27] MEDS: KLONOPIN PO SCH ×2 (09:48→21:10)
--- NOTE | 2016-07-27 10:41 | PROGRESS NOTE ---
DATE: 07/27/2016 SUBJECTIVE: Patient has no new complaints. He states he may be having a little bit increased abdominal pain today compared to yesterday. However, he did drink a lot more last night. Notes that he is scheduled for a colonoscopy tomorrow. PHYSICAL EXAMINATION: Vital Signs: Temperature 98, pulse 55, respiratory rate 18, BP 123/55, saturation 100% on room air. General: Patient is awake, alert. He is in no distress. He is pleasant to talk with. Speech is regular. Memory is intact. Neck: Supple. CV: Regular rate. Chest: Relatively clear. Abdomen: Soft. Mildly tender diffusely, more so in the epigastric region. No guarding. No rebound. Extremities: Moves all extremities. Neurologic: No focal changes. ASSESSMENT: 1. Recurrent pancreatitis of uncertain etiology. Patient denies any alcohol use. Gastroenterology is on board and has a scheduled colonoscopy in the morning. 2. Hypokalemia. Potassium 3.4. We will replace. 3. Hypernatremia. Sodium has increased to 146. 4. Chronic renal failure. Serum creatinine is at his baseline of 1.3-1.5. PLAN: We will continue patient's pain control, colonoscopy in the a.m. Continue to follow his potassium and sodium. Further orders as needed. cc: Niall St MD
[2016-07-27] MEDS: SODIUM CHLORIDE 0.9% 10 ML ONE (21:09)
[2016-07-28] MEDS: DILAUDID IV PRN ×5 (01:26→23:11)
[2016-07-28] MEDS: ZOFRAN IV PRN ×2 (01:29→21:09)
[2016-07-28] MEDS: NS 1,000 ML IV SCH ×2 (01:35→17:25)
[2016-07-28] MEDS: CARAFATE LIQUID PO SCH ×4 (03:53→23:14)
--- NOTE | 2016-07-28 07:40 | PROGRESS NOTE ---
DATE: 07/26/2016 SUBJECTIVE: Matheus is feeling better. He is still complaining of some abdominal pain after he eats, some nausea. No diarrhea or constipation. No melena or hematochezia. OBJECTIVE: Vital Signs: Temperature 98 degrees, pulse 76, respirations 18, blood pressure 132/60, O2 saturation 100% on room air. General: Awake and alert. Surrounded by family. HEENT: No scleral icterus. Mild conjunctival pallor present. Neck: Supple. Trachea midline. Heart: Normal first and second heart sounds. Lungs: Clear. Abdomen: Mildly distended. Vaguely tender but no guarding, rebound, or rigidity. Extremities: No edema. Neurological: No focal deficits. Labs: Creatinine is improved at 1.3 with hydration. IMPRESSION: 1. Recurrent episodes of mild acute pancreatitis of unclear etiology. 2. History of diarrhea and a history of Crohn's which has resolved. 3. Dehydration and acute renal failure, which is getting better. 4. Metabolic acidosis, which has improved. PLAN: Continue the current management. He is scheduled for a colonoscopy by Dr. Dawkins on Thursday. He does want to have some solid food before. I will arrange for 1 meal and then put him back on clear liquids, and start his prep tomorrow. cc: Jayda Chaves MD
--- NOTE | 2016-07-28 07:41 | PROGRESS NOTE ---
DATE: 07/27/2016 SUBJECTIVE: Patient is feeling fine. His son and [id number] are at bedside. He is joking. Drank enough fluids. Denies any significant abdominal pain. OBJECTIVE: Vital Signs: Vital signs are stable with a temperature of 98 degrees, pulse 80, respirations 18, blood pressure 120/60, O2 saturation 100% on room air. General: Awake and alert. HEENT: No scleral icterus. No conjunctival pallor. Neck: Supple. Trachea in the midline. Heart and Lungs: Normal. Abdomen: Benign. Minimally distended. Bowel sounds are present and normal. Extremities: Unremarkable. Laboratory Data: Unchanged. His amylase is about the same. Lipase has come down. IMPRESSION: 1. Acute pancreatitis of unclear etiology, resolving. 2. Diarrhea. As a result, he is getting ready for colonoscopy. 3. Acute renal failure, resolved. 4. Acidosis, resolved. PLAN: He is getting a colonoscopy. I encouraged him to complete the GoLYTELY slowly for an optimal colon exam. He agreed to do that. -1 cc: Jayda Chaves MD
[2016-07-28] MEDS ORDERED: SODIUM CHLORIDE 0.9% 10 ML ONE ×2 (07:44→16:36)
[2016-07-28 08:29] LABS: MANUAL DIFF NEEDED? NO
[2016-07-28 08:37] LABS: BASO% 0.3 % (0.0-0.8); EOS# 0.17 X1000 (0.0-0.7); EOS% 5.3 % (0.0-10.0); HEMATOCRIT 31.1 % (42.0-52.0); HEMOGLOBIN 10.4 g/dL (14.0-18.0); LYMPH# 1.28 X1000 (1.2-3.4); MCH 27.5 PG (27-31); MCHC 33.4 g/dL (33-37); MCV 82.3 FL (81-99); MONO# 0.52 X1000 (0.11-0.59); MONO% 16.3 % (1.7-9.3); MPV 9.4 FL (7.4-10.4); NEUT% 38.1 % (42.2-75.2); PLT 217 X1000 (130-400); RBC 3.78 XMIL (4.7-6.1)
[2016-07-28] MEDS: PROTONIX IV SCH ×2 (08:54→20:48)
[2016-07-28] MEDS: OXY IR PO SCH ×3 (09:00→20:47)
[2016-07-28 09:20] LABS: AGAP 12; ALBUMIN 3.1 g/dL (3.5-5.0); ALKALINE PHOSPHATASE 52 U/L (32-122); BUN 6 mg/dL (8-22); CALCIUM 8.7 mg/dL (8.8-10.2); CHLORIDE 111 mmol/L (98-107); COSMO 286; GOT 56 U/L (10-34); GPT 32 U/L (10-44); LIPASE 77 U/L (13-60); MAGNESIUM 1.4 mg/dL (1.5-2.7); POTASSIUM 2.9 mmol/L (3.5-5.1); SODIUM 145 mmol/L (136-145); TCO2 22 mmol/L (25-35); TOTAL BILIRUBIN 0.24 mg/dL (0.20-1.00); TOTAL PROTEIN 5.7 g/dL (6.3-8.3)
[2016-07-28] MEDS: CREON PO SCH ×3 (09:46→18:36)
[2016-07-28] MEDS ORDERED: MAGNESIUM SULFATE 2 GM/S.W.I. 2 GM/50 ML IVPB IV ONE (10:21)
[2016-07-28] MEDS ORDERED: POTASSIUM CHLORIDE 60 MEQ in NS 500 ML IV ONE (11:00)
[2016-07-28] MEDS ORDERED: DIPRIVAN 1% ONE (13:50)
[2016-07-28] MEDS ORDERED: LR 1,000 ML ONE (13:59)
[2016-07-28] MEDS ORDERED: ANESTHESIA PB SET 88 IN 5742 ONE (13:59)
[2016-07-28] MEDS ORDERED: EXTENSION SET 32 IN 4522 ONE (13:59)
[2016-07-28] MEDS: KLONOPIN PO SCH ×2 (14:43→20:47)
[2016-07-28] MEDS: SOLU-MEDROL IV SCH (14:49)
--- NOTE | 2016-07-28 15:37 | PROGRESS NOTE ---
DATE: 07/28/2016 SUBJECTIVE: The patient complains of epigastric pain. He is scheduled for an emergency department today and a sigmoidoscopy. OBJECTIVE: Vital Signs: Temperature 98 degrees, blood pressure 134/74, heart rate 50, respirations 18, O2 saturations 97% on room air. General: This is an elderly male, lying in bed, in no acute distress. Head: Normocephalic, atraumatic. Heart: S1, S2 normal. Regular rate and rhythm. Lungs: Clear to auscultation bilaterally. No wheezes, no rales, no rhonchi. Abdomen: Positive bowel sounds. Soft. Positive for epigastric tenderness. Extremities: No edema. No cyanosis. No calf tenderness. Neurologic: The patient is alert and oriented x3. LABS: White blood cell count 3.2, hemoglobin 10, hematocrit 31, platelets 217,000. Sodium 145, potassium 2.9, chloride 111. CO2 22, BUN 6, creatinine 1.3. Magnesium 1.4, phosphorus 2.4. Lipase 77. ASSESSMENT AND PLAN: 1. Acute pancreatitis. Slowly improving. The patient's lipase is slowly normalizing. The patient is scheduled for an esophagogastroduodenoscopy today. 2. Diarrhea. The patient is scheduled to undergo a flexible sigmoidoscopy today. 3. Hypokalemia. Will replace the patient's potassium. 4. Acute kidney injury. Slowly improving. Continue with gentle IV fluid hydration. 5. Hypomagnesemia. Will replace the patient's magnesium. 6. Gastrointestinal prophylaxis. Continue on IV Protonix. cc: Shari Champagne MD
[2016-07-29] MEDS: SOLU-MEDROL IV SCH ×2 (02:49→17:06)
[2016-07-29] MEDS: CARAFATE LIQUID PO SCH ×3 (03:22→17:03)
[2016-07-29 06:41] LABS: HEMATOCRIT 33.1 % (42.0-52.0); HEMOGLOBIN 11.1 g/dL (14.0-18.0); MCH 27.3 PG (27-31); MCHC 33.5 g/dL (33-37); MCV 81.5 FL (81-99); RBC 4.06 XMIL (4.7-6.1)
[2016-07-29 07:02] LABS: AGAP 12; ALBUMIN 3.3 g/dL (3.5-5.0); ALKALINE PHOSPHATASE 55 U/L (32-122); BUN 10 mg/dL (8-22); CALCIUM 8.8 mg/dL (8.8-10.2); CHLORIDE 110 mmol/L (98-107); COSMO 289; GOT 41 U/L (10-34); GPT 38 U/L (10-44); HDL 37 mg/dL (35-55); LDL 56 mg/dL; LIPASE 70 U/L (13-60); MAGNESIUM 1.9 mg/dL (1.5-2.7); POTASSIUM 3.8 mmol/L (3.5-5.1); SODIUM 145 mmol/L (136-145); TCO2 23 mmol/L (25-35); TOTAL PROTEIN 6.2 g/dL (6.3-8.3); TRIGLYCERIDES 78 mg/dL (39-160); VLDL 16 mg/dL
[2016-07-29] MEDS ORDERED: SODIUM CHLORIDE 0.9% 10 ML ONE ×2 (07:47→16:25)
[2016-07-29] MEDS: OXY IR PO SCH ×2 (09:00→14:04)
[2016-07-29] MEDS: KLONOPIN PO SCH (09:00)
[2016-07-29] MEDS: DILAUDID IV PRN (09:34)
--- NOTE | 2016-07-29 09:53 | Diag Imaging Result Document ---
PROCEDURE NAME: GASTRIC EMPTYING - 07/29/2016 NUCLEAR MEDICINE GASTRIC EMPTYING EXAM: PROCEDURE: 555 microcuries Tc99m sulfur colloid ingested with egg. Imaging for 2 hours performed. T 1/2 is calculated to 47 minutes. IMPRESSION: Quick gastric emptying.
[2016-07-29] MEDS: ZOFRAN IV PRN (10:28)
[2016-07-29] MEDS: CREON PO SCH ×3 (10:29→17:04)
[2016-07-29] MEDS: PROTONIX IV SCH (10:30)
[2016-07-29] MEDS: NEUTRA-PHOS PO SCH ×3 (10:46→17:02)
[2016-07-29] MEDS ORDERED: DILAUDID IV PRN (10:54)
[2016-07-29 14:35] VITALS: BP 172/55
--- NOTE | 2016-07-29 22:35 | PROGRESS NOTE ---
DATE: 07/29/2016 SUBJECTIVE: The patient states that he is feeling significantly better today. Since we initiated therapy with Creon, his diarrhea has resolved. He reports that his abdominal pain is better and he is tolerating a regular diet. He describes soft bowel movements. RECOMMENDATION: 1. Clinically, the patient is doing better. His exam is considerably better and he has no abdominal pain on exam. Therefore, it is reasonable to pursue outpatient therapy. 2. Continue proton pump inhibitor therapy. I would transition him to omeprazole 40 mg once daily. 3. He had ulcerations on his EGD and will require 12 weeks of Carafate therapy. After 12 weeks, I would discontinue his therapy. 4. Continue Creon, 1 with meals 3-4 times per day. 5. The patient was noted to have dumping on his gastric emptying study. Clinically, I would manage this with dietary modification such as eating protein with some amount of fat with each meal. Whenever he has carbohydrate intake, he will need to have fat to slow the digestion. I will monitor his clinical course on Creon and determine if he needs additional therapies or a higher dose. 6. The patient is noted to have hypophosphatemia which should be corrected before he is discharged to home. 7. His hemoglobin and hematocrit are stable. We await his biopsy results for further intervention. 8. We will have the patient return to clinic in 4 weeks to assess interval progress. cc: MD Gordon Vásquez MD Katherine Takundwa, MD MTDD
--- NOTE | 2016-07-30 10:09 | OPERATIVE NOTE ---
PROCEDURE DATE: 07/28/2016 DATE OF PROCEDURE: 07/28/2016. REFERRING PHYSICIAN: Gordon Oquendo M.D. INDICATION FOR PROCEDURE: 1. Nausea with vomiting. 2. Worsening diarrhea. 3. Abdominal pain. PROCEDURE PERFORMED: Esophagogastroduodenoscopy with biopsy. CONSENT: Informed consent was obtained from the patient prior to the procedure. The risks, benefits, and alternatives were discussed. MEDICATION: The patient received monitored anesthesia care. PERFORMING PHYSICIAN: Kamala Dawkins M.D. ASSISTANTS: 1. ST. [facility] 2. Chrissy Harden RN. 3. Fausto Song CRNA. 4. Shukri Escalante M.D. (anesthesia). COMPLICATIONS: There were no complications. ESTIMATED BLOOD LOSS: 1-2 mL. SPECIMENS REMOVED: 1. Duodenal biopsy. 2. Gastric biopsy. FINDINGS: After sedation was achieved, the upper endoscope was inserted to the second portion of the duodenum. The hypopharynx and tubular esophagus appeared endoscopically normal. The GE junction was normal at 40 cm from the incisors. There was a hiatal hernia that spanned from 40-45 cm. In the gastric lumen, there were retained gastric secretions of more than 200 mL that were evacuated. After evacuation, there were erosive changes to the gastric mucosa consistent with erosive gastritis. There is a superficial antral ulcer immediately adjacent to the pylorus. On retroflexed view, there was again gastritis noted. There were no other findings. On forward view, the pylorus appeared normal. In the duodenum, there was duodenitis with thickened duodenal folds to the second portion. The ampulla of Vater appeared normal. After the exam was complete, biopsies were taken from the duodenum and gastric mucosa. The lumen was decompressed and the scope was removed without incident. IMPRESSION: 1. Hiatal hernia. 2. Retained gastric secretions consistent with gastric stasis. 3. Erosive gastritis. 4. Superficial antral ulcer. 5. Duodenitis. 6. Normal ampulla of Vater. RECOMMENDATION: 1. Await biopsy results. 2. Continue Protonix 40 mg IV q. 12 hours. 3. Continue Carafate 1 g four times a day for a total of 12 weeks and then stop. 4. Creon was initiated this hospitalization for possible pancreatic insufficiency. I would continue the pancreatic enzymes. 5. We will check a gastric emptying study as he had evidence of gastric stasis. 6. We will proceed with the flexible sigmoidoscopy as previously scheduled. cc: MD Gordon Vásquez MD MTDD
--- NOTE | 2016-07-30 10:12 | OPERATIVE NOTE ---
PROCEDURE DATE: 07/28/2016 REFERRING PHYSICIAN: Dr. Gordon Oquendo M.D. INDICATION FOR CONSULTATION: 1. Refractory diarrhea. 2. Abdominal pain. 3. History of possible Crohn's disease. PROCEDURE PERFORMED: Flexible sigmoidoscopy with biopsy. CONSENT: Informed consent was obtained from the patient prior to the procedure. The risks, benefits, and alternatives were discussed. MEDICATION: The patient received monitored anesthesia care. PERFORMING PHYSICIAN: Kamala Dawkins M.D. ASSISTANTS: 1. [facility]. [facility] 2. Chrissy Harden RN. 3. Fausto Song CRNA. 4. Shukri Escalante M.D. (anesthesia). COMPLICATIONS: There were no complications. ESTIMATED BLOOD LOSS: 1-2 mL. SPECIMENS REMOVED: Rectal biopsies. FINDINGS: After the EGD was performed, the patient was repositioned. The upper endoscope was inserted to 40 cm. He is status post a colectomy with an ileoanal anastomosis. The terminal ileum appeared normal for approximately 20 cm. Upon withdrawal, the anastomosis appeared grossly normal. There was granulation tissue with small polypoid changes but no masses or ulcerations. Upon further withdrawal, the rectum appeared normal. There were no additional polyps as seen on his previous flexible sigmoidoscopy. There was no inflammation or ulceration seen. The upper rectum appeared normal. On retroflexed view, there were large external hemorrhoids with no stigmata of bleeding. Rectal biopsies were taken. The lumen was then decompressed and the scope was removed without incident. IMPRESSION: 1. Grossly normal flexible sigmoidoscopy to 40 cm. 2. Ileoanal anastomosis. 3. Possible small polyp at the anastomosis that remains intact. 4. Large external hemorrhoids. RECOMMENDATION: 1. Await biopsy results. 2. The patient carries the diagnosis of Crohn's disease that was diagnosed years ago. Therefore, I would begin Solu-Medrol 40 mg IV q.12 hours for 24-48 hours. Once he is ready to be discharged, I would place him on a fairly rapid steroid taper over the next 7 -10 days. 3. I will recheck an IBD profile. Given his recurrent bouts of pancreatitis and his repeat admissions for diarrhea, he may benefit from long-term immunosuppressive therapy. However, it would be important to confirm his diagnosis of Crohn's disease before we place the patient on long-term therapy. It should be noted that he was placed on Creon therapy for presumed pancreatic insufficiency. We will make our decision based on his clinical response to pancreatic enzyme replacement therapy as well as his overall clinical course. 4. We will have the patient return to clinic 4-6 weeks following his hospital discharge. cc: MD Gordon Vásquez MD MTDD
--- NOTE | 2016-08-07 10:14 | DISCHARGE SUMMARY ---
ADMISSION DATE: 07/25/2016 DISCHARGE DATE: 07/29/2016 FINAL DISCHARGE DIAGNOSES: 1. Acute pancreatitis. 2. Antral ulcer. 3. Erosive gastritis. 4. Hypertension. 5. Anemia of chronic disease. 6. Acute kidney injury. 7. Hypophosphatemia. CONSULTATION REQUESTED DURING THIS HOSPITAL STAY: GI consultation with Dr. Dawkins. PROCEDURES PERFORMED DURING THIS HOSPITAL STAY: 1. EGD that revealed erosive gastritis and an antral ulcer. 2. Flexible sigmoidoscopy with biopsy which revealed large external hemorrhoids and a small polyp at the anastomosis. HOSPITAL COURSE: Mr. Miranda is a 61-year-old male with a history of inflammatory bowel disease, who presented to the ER with a chief complaint of abdominal pain and diarrhea for 1 week. On admission, the patient's lipase was noted to be mildly elevated. The patient was admitted to the hospitalist service and GI was consulted. The patient was placed on bowel rest and started on IV fluids, antiemetics and p.r.n. pain medication. GI was also consulted for further assistance. Stool studies were requested, all of which were noted to be normal. The patient was then scheduled for an EGD and flexible sigmoidoscopy. The EGD revealed an antral ulcer, as well as erosive gastritis. The sigmoidoscopy revealed external hemorrhoids. Over the course of the hospitalization, the patient's abdominal pain resolved, as well as the diarrhea. The patient was slowly transitioned to a solid diet, which she was able to tolerate without any difficulty. The patient was ultimately cleared for discharge home on 07/29/2016. DISCHARGE MEDICATIONS: 1. Omeprazole 40 mg p.o. daily. 2. Carafate 1 g p.o. 4 times a day x12 weeks. 3. Creon 6000 units oral 3 times a day with meals. 4. Flomax 0.4 mg p.o. daily. 5. Fenofibrate 160 mg p.o. daily. 6. Canasa suppository 1000 mg per rectum at bedtime. 7. Klonopin 1 mg p.o. twice a day. 8. Oxycodone 30 mg p.o. 3 times a day. 9. Paxil 40 mg p.o. every morning. DISCHARGE DIET: Rich diet. ACTIVITY: As tolerated. FOLLOWUP INSTRUCTIONS: The patient will need to follow up with Dr. Dawkins in 2 weeks. The patient will also need to follow up with Dr. Gordon Oquendo in 2 weeks. cc: MD Gordon Grijalva MD
== END 2016-07-29 17:42 | disposition home or self-care (01) ==
LOC: ED 13:37 → SUATTDRO 07-25 00:50 → 3N 07-25 00:50
PROVIDERS: ATTEND Internal Medicine